=== PATIENT | male | born 1985 | race African-American/Black ===

== ENCOUNTER 2017-03-31 00:35 | Emergency (ER) | payer OTHER ==
[~2017-03-31] VITALS: Ht 190.5 cm; Wt 156.8 kg
[2017-03-31 00:50] VITALS: BP 190/100; PULSE 118; RESP 16; TEMP 99.5; O2SAT 97
--- NOTE | 2017-03-31 01:37 | PD ---
HPI Chief Complaint: GI Complaint Time Seen by Provider: 01:36 Travel History International Travel<30 days: No Contact w/Intl Traveler<30days: No Traveled to known affect area: No History of Present Illness HPI The patient is a 32-year-old male that tonight complains of chills, diarrhea, nausea without vomiting and dry mouth. He denies any blood in the diarrhea. He may have had a fever at home, he did not take his temperature. He denies any recent foreign travel, well water ingestion, recent antibiotics, history of bowel problems like regional enteritis, ulcerative colitis and the abdominal pain is minimal and diffuse. He still has his appendix and gallbladder. [facility] Social History Tobacco Use: No Allergies-Medications (Allergen,Severity, Reaction): Coded Allergies: No Known Allergies (Unverified , 03/31/17) Reported Meds & Prescriptions Reported Meds & Active Scripts Active No Active Prescriptions or Reported Medications Review of Systems Except as stated in HPI: all other systems reviewed are Neg Physical Exam Narrative GENERAL: The patient is alert, slightly dehydrated-appearing, oriented 3 and slight apparent distress with his abdominal discomfort. His vital signs show heart rate of 118 and blood pressure 190/100 but are otherwise normal. SKIN: Focused skin assessment warm/dry. HEAD: Atraumatic. Normocephalic. EYES: Pupils equal and round. No scleral icterus. No injection or drainage. ENT: No nasal bleeding or discharge. Mucous membranes pink and moist. NECK: Trachea midline. No JVD. CARDIOVASCULAR: Regular rate and rhythm. No murmur appreciated. RESPIRATORY: No accessory muscle use. Clear to auscultation. Breath sounds equal bilaterally. GASTROINTESTINAL: Abdomen soft, non-tender, nondistended. Hepatic and splenic margins not palpable. MUSCULOSKELETAL: No obvious deformities. No clubbing. No cyanosis. No edema. NEUROLOGICAL: Awake and alert. No obvious cranial nerve deficits. Motor grossly within normal limits. Normal speech. PSYCHIATRIC: Appropriate mood and affect; insight and judgment normal. Data Data Last Documented VS Vital Signs Date Time Temp Pulse Resp B/P (MAP) Pulse Ox O2 Delivery O2 Flow Rate FiO2 03/31/17 01:49 112 18 138/72 (94) 95 Room Air 03/31/17 00:50 99.5 Orders Orders Basic Metabolic Panel (Bmp) (03/31/17 01:39) Complete Blood Count With Diff (03/31/17 01:39) Lipase (03/31/17 01:39) Iv Access Insert/Monitor (03/31/17 01:39) Ecg Monitoring (03/31/17 01:39) Oximetry (03/31/17 01:39) Sodium Chloride 0.9% Flush (Ns Flush) (03/31/17 01:45) Sodium Chlor 0.9% 1000 Ml Inj (Ns 1000 M (03/31/17 01:45) Ondansetron Inj (Zofran Inj) (03/31/17 01:45) Labs Laboratory Tests Test 03/31/17 02:05 White Blood Count 9.0 TH/MM3 Red Blood Count 4.80 MIL/MM3 Hemoglobin 14.5 GM/DL Hematocrit 42.8 % Mean Corpuscular Volume 89.3 FL Mean Corpuscular Hemoglobin 30.1 PG Mean Corpuscular Hemoglobin Concent 33.8 % Red Cell Distribution Width 12.9 % Platelet Count 234 TH/MM3 Mean Platelet Volume 7.8 FL Neutrophils (%) (Auto) 92.3 % Lymphocytes (%) (Auto) 6.8 % Monocytes (%) (Auto) 0.2 % Eosinophils (%) (Auto) 0.4 % Basophils (%) (Auto) 0.3 % Neutrophils # (Auto) 8.4 TH/MM3 Lymphocytes # (Auto) 0.6 TH/MM3 Monocytes # (Auto) 0.0 TH/MM3 Eosinophils # (Auto) 0.0 TH/MM3 Basophils # (Auto) 0.0 TH/MM3 CBC Comment DIFF FINAL Differential Comment Blood Urea Nitrogen 11 MG/DL Creatinine 1.20 MG/DL Random Glucose 90 MG/DL Calcium Level 8.4 MG/DL Sodium Level 136 MEQ/L Potassium Level 3.7 MEQ/L Chloride Level 102 MEQ/L Carbon Dioxide Level 28.9 MEQ/L Anion Gap 5 MEQ/L Estimat Glomerular Filtration Rate 84 ML/MIN Lipase 144 U/L MDM Medical Decision Making Medical Screen Exam Complete: Yes Emergency Medical Condition: Yes Medical Record Reviewed: Yes Interpretation(s) The CBC is normal except for 92% neutrophils and the basic metabolic profile is normal except for a GFR of 84 and calcium of 8.4. The lipase is normal. Differential Diagnosis Gastroenteritis, colitis, cholecystitis, Narrative Course It is now 0300 and the patient feels much better and is not nauseated. He is successfully drinking Gatorade. Impression: Gastroenteritis, mild dehydration Plan: The patient be given a 3 day work excuse, prescription for Compazine and follow-up with his primary care physician this week or early next week. He should drink clear liquids like Gatorade in the first 24-48 hours. Diagnosis Primary Impression: Gastroenteritis Additional Impression: Mild dehydration Additional Instructions: Follow-up with a primary care physician this week or early next week. Drink clear liquids like Gatorade and gradually progress to crackers, Jell-O, fruit juices. Keep herself well-hydrated. Compazine (prochlorperazine maleate) is for nausea and this tablet as one every 6 hours as needed. Med/Other Pt SpecificInfo: Prescription(s) given Scripts Prochlorperazine Maleate (Prochlorperazine Maleate) 10 Mg Tab 10 MG PO Q6H Y for NAUSEA OR VOMITING, #28 TAB 0 Refills Prov: Carlo Burris MD 03/31/17 Disposition: 01 DISCHARGE HOME Condition: Stable Carlo Burris MD Mar 31, 2017 01:37
[2017-03-31 01:44] VITALS: RESP 18; O2SAT 99
[2017-03-31] MEDS ORDERED: ONDANSETRON HCL 4 MG/2 ML VIAL IV ONE (01:45)
[2017-03-31] MEDS ORDERED: SODIUM CHLORIDE 0.9% FLUSH 10 ML FLUSH IV FLUSH PRN (01:45)
[2017-03-31 01:49] VITALS: BP 138/72; PULSE 112; RESP 18; O2SAT 95
[2017-03-31] MEDS: SODIUM CHLOR 0.9% 1000 ML INJ 1,000 ML IV SCH ×2 (02:03→02:40)
[2017-03-31 02:12] LABS: AUTOMATED NEUTROPHIL # 8.4 TH/MM3 (1.8-7.7); BASOPHIL % 0.3 % (0.0-2.0); EOSINOPHIL % 0.4 % (0.0-4.0); HEMATOCRIT 42.8 % (39.0-51.0); HEMO FLAGS DIFF FINAL; LYMPH % 6.8 % (9.0-44.0); LYMPHOCYTE # 0.6 TH/MM3 (1.0-4.8); MEAN CELL VOLUME 89.3 FL (80.0-100.0); MEAN CORPUSCULAR HEMOGLOBIN 30.1 PG (27.0-34.0); MEAN CORPUSCULAR HGB CONC 33.8 % (32.0-36.0); MONO % 0.2 % (0.0-8.0); NEUT % 92.3 % (16.0-70.0); PLATELET COUNT 234 TH/MM3 (150-450); RED CELL DISTRIBUTION WIDTH 12.9 % (11.6-17.2)
[2017-03-31 02:19] LABS: POTASSIUM 3.7 MEQ/L (3.5-5.1)
[2017-03-31 02:22] LABS: BICARBONATE 28.9 MEQ/L (21.0-32.0)
[2017-03-31] MEDS ORDERED: PROC10TA PO (03:06)
[2017-03-31 03:16] VITALS: BP 118/60
== END 2017-03-31 03:31 | disposition home or self-care (01) ==
LOC: PHED 00:35
DX: K52.9 Noninfective gastroenteritis and colitis, unspecified (principal); E86.0 Dehydration
CPT/HCPCS: 80048; 83690; 85025; 96361; 96374; 99284; J2405; J7030